=== PATIENT | male | born 1990 | race Caucasian/White ===

== ENCOUNTER 2018-10-07 21:02 | Emergency (ER) | payer MEDICAID, OTHER ==
[2018-10-07] MEDS: LORAZEPAM 0.5 MG TAB PO (22:06)
== END 2018-10-07 22:30 | disposition home or self-care (01) ==
LOC: FTE 21:02
DX: I10 Essential (primary) hypertension (principal); Z87.891 Personal history of nicotine dependence
CPT/HCPCS: 93005; 99283-25; Z7502